=== PATIENT | female | born 1975 | race Caucasian/White ===

== ENCOUNTER 2018-04-22 11:42 | Emergency (ER) | payer BC ==
[~2018-04-22] VITALS: Ht 175.3 cm; Wt 63.5 kg
[~2018-04-22 11:42] MED LIST: Advil200 M1 PO; OXYACE5T PO
== END 2018-04-22 15:17 | disposition home or self-care (01) ==
LOC: ER 11:42
DX: R51 Headache (principal); Z88.0 Allergy status to penicillin
CPT/HCPCS: 70450; 96361; 96374; 96375; 99284-25; J0780; J1100; J1200; J1885; J2405; J7030